=== PATIENT | female | born 1945 | race Caucasian/White ===

== ENCOUNTER 2016-05-24 15:28 | Emergency (ER) | payer OTHER ==
[~2016-05-24] VITALS: Ht 162.6 cm; Wt 60.5 kg
[2016-05-24 15:33] VITALS: Ht 162.6 cm; Wt 60.5 kg
[2016-05-24] MEDS ORDERED: PRED20TA PO (15:47)
[2016-05-24] MEDS ORDERED: LACR35O RIGHT EYE (15:47)
[2016-05-24] MEDS ORDERED: predniSONE 20 MG TAB PO ONE (16:00)
--- NOTE | 2016-05-24 20:14 | ERD ---
ER Documentation Chief Complaint Date/Time DATE: 05/24/16 TIME: 20:11 Chief Complaint HEADCAHE , RT EAR ACHE X 3 DAYS , LT SIDE FACIAL DROOP SINCE 1000 AM HPI Patient is a 62-year-old female with diabetes and high cholesterol presents with right-sided facial droop. The patient had headache for the past few days and then had a right-sided facial droop which started today. There is no slurred speech. There is no weakness of the arms or legs. The symptoms of the right facial droop started today. She was unable to close her right eye. She has had no treatment as of yet. ROS All systems reviewed and are negative except as per history of present illness. Medications Home Meds Active Scripts Mineral Oil/Lanolin Oil (Lacri-Lube) 3.5 Gm Oint, 1 APPLIC RIGHT EYE NEEDED for DRY EYES, #1 EA Prov:ELBA KRISHNAMURTHY MD 05/24/16 Prednisone* (Prednisone*) 20 Mg Tab, 60 MG PO DAILY for 4 Days, TAB Prov:ELBA KRISHNAMURTHY MD 05/24/16 PMhx/Soc Medical and Surgical Hx: pt denies Surgical Hx History of Surgery: No Anesthesia Reaction: No Hx Neurological Disorder: No Hx Respiratory Disorders: No Hx Cardiac Disorders: Yes (htn) Hx Miscellaneous Medical Probl: Yes (dm) Hx Alcohol Use: No Hx Substance Use: No Hx Tobacco Use: No Smoking Status: Never smoker FmHx Family History: diabetes Physical Exam Vitals Vital Signs Date Time Temp Pulse Resp B/P Pulse Ox O2 Delivery O2 Flow Rate FiO2 05/24/16 15:33 98.1 82 18 187/79 99 Physical Exam Const: No acute distress Head: Atraumatic Eyes: Normal Conjunctiva ENT: Normal External Ears, Nose and Mouth. Neck: Full range of motion..~ No meningismus. Resp: Clear to auscultation bilaterally Cardio: Regular rate and rhythm, no murmurs Abd: Soft, non tender, non distended. Normal bowel sounds Skin: No petechiae or rashes Back: No midline or flank tenderness Ext: No cyanosis, or edema Neur: Awake and alert, right-sided facial droop which does involve the right forehead and eyebrow consistent with Oropeza's palsy, no pronator drift, strength in the upper and lower extremities is 5 out of 5 bilaterally Psych: Normal Mood and Affect Results 24 hrs Current Medications Medications (Trade) Dose Ordered Sig/Gen Route PRN Reason Start Time Stop Time Status Last Admin Dose Admin Prednisone (Prednisone) 60 mg ONCE ONCE PO 05/24/16 16:00 05/24/16 16:01 DC 05/24/16 16:04 Procedures/[facility] Patient is a 70-year-old female with diabetes who presents with right-sided facial droop. Her symptoms are consistent with a Oropeza's palsy at this time and I doubt stroke. She has no other stroke symptoms. She will be treated with prednisone for 5 day course as well as Lacri-Lube. She was given the first dose of prednisone in the emergency department. She can return sooner for any worsening symptoms. She should follow-up with her primary doctor within 24-48 hours for reevaluation. Departure Diagnosis: Primary Impression: Oropeza's palsy Additional Impression: Headache Headache type: unspecified Headache chronicity pattern: acute headache Intractability: not intractable Qualified Code: R51 - Acute nonintractable headache, unspecified headache type Condition: Fair Patient Instructions: Oropeza's Palsy Referrals: Your doctor Additional Instructions: Llame al doctor SAI y hailey khadar FERNY PARA DENTRO DE 1-2 GUALLPA.Dgale a la secretaria que nosotros le instruimos hacer esta ferny.Avise o llame si johnson condicin se empeora antes de la ferny. Regresa aqui si peor o no mejor. ELBA KRISHNAMURTHY MD May 24, 2016 20:14
== END 2016-05-24 16:09 | disposition home or self-care (01) ==
LOC: E/R 15:28
DX: G51.0 Bell's palsy (principal); R51 Headache; E11.9 Type 2 diabetes mellitus without complications; I10 Essential (primary) hypertension
CPT/HCPCS: 99283; J7512

== ENCOUNTER 2017-08-08 19:53 | Emergency (ER) | END 2017-08-08 22:27 | disposition home or self-care (01) ==